=== PATIENT | male | born 1980 | race Caucasian/White ===

== ENCOUNTER 2025-08-06 13:23 | Emergency (ER) | payer OTHER, SELFPAY ==
--- OUTSIDE RECORDS SUMMARY | 2025-04-14 11:19 | XMS_ITS | Continuity of Care Document ---
Author Organization [facility] Address [address] [place] [address] Phone Care Team Providers Care Box Storage Worker Name Role Phone Paulding MATTHEW, Dolly Unavailable Unavailab le Advance Directives Directive Yes / No Effective Date File Name No Information Encounters Encounter Description Practice Location Reason(s) For Visit Diagnoses Date Provider Providers Copied on Encounter [facility], [address], [place], [place], [id number], [place] tel:[phone] [facility] No Information [facility]. [address], [place], [place], [id number], [place]. tel:[phone] Family History Family Member Type Diagnosis Age At Onset No Information Payers Payer name Insurance type Covered libertarian ID Authoriza tion(s) No Information Social History Type Description Quantity Date Captured Comments Sex Male Smoking Status No Information Chief Complaint And Reason For Visit No Information Reason For Referral Reason For Referral No Information History Of Present Illness Encounter Date Complaint History Of Prese nt Illness No Information Functional Status Date Functional Assessmen t No Information Instructions Date Instruction Additional Infor mation No Information Assessments Type Assessment Date No Information Patient Care Teams Name Effective Dates (start - stop) Status Members No Information
[2025-08-06 13:27] VITALS: BP 135/84; PULSE 56; TEMP 36.5; O2SAT 99; BMI 30.5
--- OUTSIDE RECORDS SUMMARY | 2025-08-06 14:01 | XMS_ITS | Clinical Summary ---
Author Organization [id number] [place] [address] Care Team Providers Care Confidential Investigator Name Role Phone El Graf MD Primary Care Provider + [phone] Allergies No known active allergies Medications ondansetron (ZOFRAN) 4 mg tablet Take 1 tablet (4 mg total) by mouth every 8 (eight) hours as needed for nausea or vomiting. 20 tablet 11/01/2024 Active Active Problems No known active problems Immunizations No known immunizations Family History Medical History Relation Name Comments Diabetes Mother Hypertension Mother Relation Name Status Comments Mother Social History Tobacco Use Types Packs/Day Years Used Date Smoking Tobacco: Never Smokeless Tobacco: Never Tobacco Cessation:Counseling Given: Not Answered Alcohol Use Standard Drinks/Week Comments Yes 0 (1 standard drink = 0.6 oz pur e alcohol) ocassionally PHQ-2 Answer Date Recorded Total Score 0 08/20/2024 Childcare Answer Date Recorded Childcare Unknown 04/21/2019 Employment Answer Date Recorded Employment Unknown 04/21/2019 Hunger Screening Answer Date Recorded Within the past 12 months we worried whether our food would run out before we got money to buy more. Never True 08/20/2024 Within the past 12 months th e food we bought just didn't last and we didn't have money to get more. Never True 08/20/2024 Purpose - Life Answer Date Recorded Purpose and direction in life Unknown Sex and Gender Information Value Date Recorded Sex Assigned at Not on file Legal Sex Male 11:34 AM EDT Gender Identity Not on file Sexual Orientation Not on file Last Filed Vital Signs Vital Sign Reading Time Taken Comments Blood Pressure 126/80 08/20/2024 9:30 AM EDT Pulse 80 08/20/2024 9:30 AM EDT Temperature 36.7 C (98 F) 08/20/2024 9:30 AM EDT Respiratory Rate 16 08/20/2024 9:30 AM EDT Oxygen Saturation 97% 08/10/2018 8:11 AM EDT Inhaled Oxygen Concentration - - Weight 101.6 kg (224 lb) 08/20/2024 9:30 AM EDT Height 182.9 cm (6') 08/20/2024 9:30 AM EDT Body Mass Index 30.38 08/20/2024 9:30 AM EDT Plan of Treatment Upcoming Encounters Date Type Department Care Team (Late st Contact Info) Description 08/26/2025 9:30 AM EDT Office Visit [facility] [address] [place] [phone] Carlyle Ruiz MD [address] [place] [id number] Health Maintenance Due Date Last Done Comments Adult BMI Follow Up Plan 1997 DTaP,Tdap and Td Vaccines (1 - Tdap) 1998 Influenza Vaccine 07/11/2025 Adult BMI Screening 08/20/2025 08/20/2024 Depression Screening 08/20/2025 08/20/2024 Tobacco Screening 08/20/2025 08/20/2024 Medical Devices Not on file Insurance [facility] Care Teams Confidential Investigator Relationship Specialty Start Date End Date El Graf MD [address] Provider retired 02/08/25 [place] [address] PCP - General Family Medicine 07/08/18
--- NOTE | 2025-08-06 14:09 | ED_ITS ---
HPI HPI - General Adult General Chief complaint: Skin/Abscess/Foreign Body Stated complaint: L PINKY FINGER LACERATION Time Seen by Provider: 08/06/25 13:35 Source: patient Mode of arrival: walk-in History of Present Illness HPI narrative: 44-year-old male presented to the emergency department for laceration to his left fifth finger. This was sustained on a metal fence outside. No other injury was sustained. No weakness or numbness. It has been more than 10 years since he has had a tetanus immunization. Related Data Allergies Allergy/AdvReac Type Severity Reaction Status Date / Time No Known Drug Allergies Allergy Verified 08/06/25 13:30 Review of Systems ROS Narrative A ten point review of systems is negative except as noted above. PFSH PFSH Social History Little interest or pleasure in doing things: not at all Feeling down, depressed, or hopeless: not at all Exam Narrative Exam Narrative: Nurses note and vital signs reviewed and patient is not hypoxic. General:The patient appears well and in no apparent distress.Patient is resting comfortably on cart. Skin:Warm, dry, no pallor noted.There is no rash noted. Head:Normocephalic, atraumatic Eye: Normal conjunctiva, no drainage Ears, Nose, Mouth, and Throat: oral mucosa is moist. Nares patent. Cardiovascular:Regular Rate and Rhythm Respiratory:Patient is in no distress, no accessory muscle use GI:Normal bowel sounds, no tenderness to palpation, no masses appreciated.No rebound, guarding, or rigidity noted. Musculoskeletal: 2.5 cm curved laceration present on his left fifth finger at the PIP joint area. PIP and DIP in full range of motion. No active bleeding. Sensation intact. Neurological: Wake and alert Psychiatric:Cooperative Constitutional Vital Signs, click to edit/add: Last Vital Signs Temp 97.7 F 08/06/25 13:27 Pulse 56 L 08/06/25 13:27 Resp 16 08/06/25 13:27 BP 135/84 08/06/25 13:27 Pulse Ox 99 08/06/25 13:27 O2 Del Method Room Air 08/06/25 13:27 Course Vital Signs Vital signs: Vital Signs Temperature 97.7 F 08/06/25 13:27 Pulse Rate 56 L 08/06/25 13:27 Respiratory Rate 16 08/06/25 13:27 Blood Pressure 135/84 08/06/25 13:27 Pulse Oximetry 99 08/06/25 13:27 Oxygen Delivery Method Room Air 08/06/25 13:27 Temperature 97.7 F 08/06/25 13:27 Pulse Rate 56 L 08/06/25 13:27 Respiratory Rate 16 08/06/25 13:27 Blood Pressure 135/84 08/06/25 13:27 Pulse Oximetry 99 08/06/25 13:27 Oxygen Delivery Method Room Air 08/06/25 13:27 Medical Decision Making MDM Narrative Medical decision making narrative: The following procedure was performed by me. Finger block applied with 1% lidocaine without epinephrine resulting in complete skin anesthesia. The area was prepped with Betadine x 3 and draped sterilely. It was explored for foreign bodies and none were found and then closed with four 5-0 Ethilon sutures resulting in good skin reapproximation and no complications. Splint applied, application tech by me and found to be appropriate, he is neurovascular intact. Sutures are to be removed in 7 to 10 days. Treatment diagnosis and follow-up were discussed with the patient. Differential Diagnosis Differential Diagnosis: Laceration Discharge Plan Discharge Chief Complaint: Skin/Abscess/Foreign Body Clinical Impression: Finger laceration Patient Disposition: Home, Self-Care Time of Disposition Decision: 14:08 Condition: Good Mode of Transportation: Private Vehicle Print Language: Kiswahili Instructions: Finger Laceration (ED) Additional Instructions: Sutures to be removed in 7 to 10 days. Use splint until sutures are removed. Referrals: Physician,Non-Staff, MD [Primary Care Provider] - 1 week
[2025-08-06] MEDS: LIDOCAINE HCL 1% 100 MG/10 ML MDV INJ (14:16)
[2025-08-06] MEDS: DIPHTH,PERTUSS(ACELL),TET VAC 0.5 ML SYRINGE IM (14:24)
== END 2025-08-06 14:36 | disposition home or self-care (01) ==
PROVIDERS: Emergency Provider Emergency Medicine
DX: S61.217A Laceration without foreign body of left little finger without damage to nail, initial encounter (principal); W26.8XXA Contact with other sharp object(s), not elsewhere classified, initial encounter; Z23 Encounter for immunization
CPT/HCPCS: 12001; 90471; 90715; 99284